=== PATIENT | male | born 1940 | race Caucasian/White ===

== ENCOUNTER → 2019-06-18 | Outpatient (CLI) | payer MEDICARE ==
[~2019-06-18] MED LIST: BENICAR HCT 201 EACH PO; METOPROLOL TART25 MG PO; METOPROLOL TART50 MG PO; TRIBENZOR 40-51 EACH PO; XARELTO20 MG PO
--- NOTE | 2019-06-18 09:59 | Diagnostic Imaging Report ---
EXAM: HIP LEFT 2-3 VW (+/- PELVIS) DATE: 06/18/2019 8:48 AM INDICATION: Left hip pain COMPARISON: None FINDINGS: There is no evidence for acute fracture or dislocation. No focal lytic or blastic abnormalities identified. There are degenerative changes of the left hip with moderate to severe joint space narrowing and associated subchondral sclerosis. Degenerative changes noted of the left sacroiliac joint. The surrounding soft tissues are unremarkable without evidence for radiopaque foreign body. IMPRESSION: No acute radiographic abnormality identified within the left hip. Degenerative changes as above. Signed by: Dr. Donnie Vasquez MD on 06/18/2019 9:56 AM
== END ==
LOC: RAD 08:23
DX: M25.552 Pain in left hip (principal)